=== PATIENT | male | born 1955 | race Caucasian/White ===

== ENCOUNTER 2016-09-17 17:48 | Emergency (ER) | payer OTHER ==
[2016-09-17 17:59] VITALS: RESP 16
--- NOTE | 2016-09-17 18:52 | CPEKG ---
Heart Rate: 73 RR Interval: 822 P-R Interval: 172 QRSD Interval: 82 QT Interval: 388 QTC Interval: 428 P [place]: 26 QRS [place]: 42 T Wave [place]: 17 EKG Severity - NORMAL ECG - EKG Impression: SINUS RHYTHM Electronically Signed By: Rey Mendoza 17-Sep-2016 23:45:26
--- NOTE | 2016-09-17 18:56 | EDPHY ---
H & P Stated Complaint: Abd discomfort since this morning;has shingles on face under tx Time Seen by Provider: 09/17/16 18:10 HPI/ROS: Chief complaint: Abdominal pain HPI: 60-year-old male currently being treated for shingles on his face had an episode of severe epigastric abdominal pain at 10 o'clock this morning. Has persisted throughout the day but is subsided. At its worst is an 8 on 10. Now 10. Patient is described in the epigastric region as a banding around his abdomen. He is having some spasm in his mid back as well. No numbness or weakness. No nausea or vomiting. No diarrhea. Did have a black stool several days ago but has had normal bowel movements since. No fevers or chills. No cough. Did not have any diaphoresis. Does not have a history of the same. No chest pain. ROS: 10 point Review of Systems is negative except as noted in the HPI. Past medical history: Shingles Meniere's disease Asthma Medications: Valtrex Asthma, albuterol p.r.n. Social history: Does not smoke, does drink alcohol approximately 3 or 4 drinks a day, no other recreational drug use Family history: Father of prostate cancer, mother has COPD is chronic smoker. No family history of coronary artery disease Physical exam: Gen: Awake, Alert, No Distress HEENT: Nose: no rhinorrhea Eyes: PERRLA, EOMI Mouth: Moist mucosa Neck: Supple, no JVD Chest: nontender, lungs clear to auscultation Heart: S1, S2 normal, no murmur Abd: Soft, mild epigastric tenderness, no right upper quadrant tenderness, no lower abdominal tenderness, no guarding Back: no CVA tenderness, no midline tenderness Ext: no edema, non-tender Skin: no rash Neuro: CN II-XII intact, Sensation grossly intact, Strength 5/5 in bilateral upper and lower extremities - Personal History Current Tetanus Diphtheria and Acellular Pertussis (TDAP): Yes - Medical/Surgical History Other PMH: shingles - Social History Smoking Status: Former smoker Constitutional: Initial Vital Signs Heart Rate 83 09/17/16 17:50 Respiratory Rate 16 09/17/16 17:50 Blood Pressure 125/95 H 09/17/16 17:50 O2 Sat (%) 96 09/17/16 17:50 O2 Delivery Mode Room Air Allergies/Adverse Reactions: No Known Allergies Allergy (Unverified 09/17/16 18:00) Home Medications: Medication Instructions Recorded valACYclovir [Valtrex (*)] 500 mg PO 09/17/16 Medical Decision Making - Diagnostics EKG Interpretation: EC sinus rhythm with a rate of 73, normal axis, normal intervals, no ST or T-wave changes. Impression: Normal ECG ED Course/Re-evaluation: 60-year-old male with episode of epigastric pain. Symptoms significantly improved with no treatment. CBC, CMP, lipase are all normal. Patient has a soft benign abdomen. Vital signs are normal. He did have reports of some dark stools early in the week. Symptoms could be consistent with gastritis versus peptic ulcer disease. Will refer to Gastroenterology for endoscopy and further evaluation. He will return for further worsening of pain, nausea vomiting, or any other concerns. - Data Points Laboratory Results: Laboratory Results 09/17/16 18:50 09/17/16 18:50 09/17/16 09/17/16 18:50 18:50 WBC 8.51 10^3/uL 10^3/uL (3.80-9.50) RBC 5.04 10^6/uL 10^6/uL (4.40-6.38) Hgb 16.9 g/dL g/dL (13.7-17.5) Hct 47.5 % % (40.0-51.0) MCV 94.2 fL fL (81.5-99.8) MCH 33.5 pg pg (27.9-34.1) MCHC 35.6 g/dL g/dL (32.4-36.7) RDW 11.3 % L % (11.5-15.2) Plt Count 218 10^3/uL 10^3/uL (150-400) MPV 9.2 fL fL (8.7-11.7) Neut % (Auto) 47.2 % % (39.3-74.2) Lymph % (Auto) 39.4 % % (15.0-45.0) Baker % (Auto) 10.8 % % (4.5-13.0) Eos % (Auto) 1.6 % % (0.6-7.6) Baso % (Auto) 0.8 % % (0.3-1.7) Nucleat RBC Rel Count 0.0 % % (0.0-0.2) Absolute Neuts (auto) 4.01 10^3/uL 10^3/uL (1.70-6.50) Absolute Lymphs (auto) 3.35 10^3/uL H 10^3/uL (1.00-3.00) Absolute Monos (auto) 0.92 10^3/uL H 10^3/uL (0.30-0.80) Absolute Eos (auto) 0.14 10^3/uL 10^3/uL (0.03-0.40) Absolute Basos (auto) 0.07 10^3/uL 10^3/uL (0.02-0.10) Absolute Nucleated RBC 0.00 10^3/uL 10^3/uL (0-0.01) Immature Gran % 0.2 % % (0.0-1.1) Seg Neutrophils % 53 % % Lymphocytes % 37 % % Monocytes % 8 % % Eosinophils % 1 % % Basophils % 1 % % Immature Gran # 0.02 10^3/uL 10^3/uL (0.00-0.10) Absolute Seg Neuts 4.51 10^/uL 10^/uL (1.70-6.50) Absolute Lymphocytes 3.15 10^3/uL H 10^3/uL (1.00-3.00) Absolute Monocytes 0.68 10^3/uL 10^3/uL (0.30-0.80) Absolute Eosinophils 0.09 10^3/uL 10^3/uL (0.03-0.40) Absolute Basophils 0.09 10^3/uL 10^3/uL (0.02-0.10) RBC/WBC/PLT Morphology NORMAL (NORMAL) Atypical Lymphocytes 1+ H Platelet Estimate ADEQUATE (ADEQ) Sodium 135 mEq/L mEq/L (134-144) Potassium 4.4 mEq/L mEq/L (3.5-5.2) Chloride 99 mEq/L mEq/L (97-110) Carbon Dioxide 24 mEq/l mEq/l (22-31) Anion Gap 12 mEq/L mEq/L (8-16) BUN 14 mg/dL mg/dL (7-23) Creatinine 0.8 mg/dL mg/dL (0.7-1.3) Estimated GFR > 60 Glucose 86 mg/dL mg/dL (70-100) Calcium 9.8 mg/dL mg/dL (8.5-10.4) Total Bilirubin 1.0 mg/dL mg/dL (0.1-1.4) Conjugated Bilirubin 0.4 mg/dL mg/dL (0.0-0.5) Unconjugated Bilirubin 0.6 mg/dL mg/dL (0.0-1.1) AST 38 IU/L IU/L (17-59) ALT 54 IU/L IU/L (21-72) Alkaline Phosphatase 54 IU/L IU/L (38-126) Troponin I < 0.012 ng/mL ng/mL (0-0.034) Total Protein 7.9 g/dL g/dL (6.3-8.2) Albumin 4.6 g/dL g/dL (3.5-5.0) Lipase 198.0 IU/L IU/L (23-300) Departure - Departure Disposition: Home, Routine, Self-Care Clinical Impression: Epigastric abdominal pain Condition: Good Instructions: Epigastric Pain (ED) Additional Instructions: Follow up with Gastroenterology to have and endoscopy to evaluate for the possibility of gastritis or peptic ulcer disease. Return to the emergency department for increasing pain, chest pain, shortness of breath, nausea, vomiting, fevers, chills, or any other concerns. May take [id number] antacids for symptomatic relief. Referrals: Chano Thompson MD [Primary Care Provider] - As per Instructions Jonathan Talley MD [Medical Doctor] - As per Instructions
[2016-09-17 19:08] LABS: % IMMATURE GRANULYOCYTES 0.2 % (0.0-1.1); ABSOLUTE IMMATURE GRANULOCYTES 0.02 10^3/uL (0.00-0.10); ADD DIFF? NO; ADD MORPH? NO; ADD SCAN? YES; FRAGMENT RBC FLAG 0 (0-99); HEMATOCRIT 47.5 % (40.0-51.0); HEMOGLOBIN 16.9 g/dL (13.7-17.5); LEFT SHIFT FLG 0 (0-99); LIPEMIA HEMOLYSIS FLAG 90 (0-99); MEAN CELL HEMOGLOBIN 33.5 pg (27.9-34.1); MEAN CELL HEMOGLOBIN CONCENTR. 35.6 g/dL (32.4-36.7); MEAN CELL VOLUME 94.2 fL (81.5-99.8); MEAN PLATELET VOLUME 9.2 fL (8.7-11.7); PLATELET CLUMPS FLAG 10 (0-99); PLATELET COUNT 218 10^3/uL (150-400); RED BLOOD CELL COUNT 5.04 10^6/uL (4.40-6.38); RED CELL DISTRIBUTION WIDTH 11.3 % (11.5-15.2)
[2016-09-17 19:29] LABS: ALANINE AMINOTRANSFERASE 54 IU/L (21-72); ALBUMIN 4.6 g/dL (3.5-5.0); ALKALINE PHOSPHATASE 54 IU/L (38-126); ANION GAP 12 mEq/L (8-16); ASPARTATE AMINOTRANSFERASE 38 IU/L (17-59); ATYPICAL LYMPHOCYTE FLAG 230 (0-99); BILIRUBIN-CONJUGATED 0.4 mg/dL (0.0-0.5); BILIRUBIN-UNCONJUGATED 0.6 mg/dL (0.0-1.1); CALCIUM 9.8 mg/dL (8.5-10.4); CARBON DIOXIDE 24 mEq/l (22-31); CHLORIDE 99 mEq/L (97-110); CREATININE 0.8 mg/dL (0.7-1.3); GLOMERULAR FILTRATION RATE > 60; GLUCOSE 86 mg/dL (70-100); POTASSIUM 4.4 mEq/L (3.5-5.2); SODIUM 135 mEq/L (134-144); TOTAL PROTEIN 7.9 g/dL (6.3-8.2)
[2016-09-17 19:41] LABS: TROPONIN I < 0.012 ng/mL (0-0.034)
[2016-09-17 19:52] LABS: SCAN POSITIVE
[2016-09-17 19:54] LABS: PLATELET ESTIMATE ADEQUATE (ADEQ)
[2016-09-17 20:40] VITALS: BP 122/89; PULSE 85; O2SAT 97
== END 2016-09-17 20:37 | disposition home or self-care (01) ==
DX: R10.13 Epigastric pain (principal); J45.909 Unspecified asthma, uncomplicated; Z87.891 Personal history of nicotine dependence